=== PATIENT | female | born 1965 | race Caucasian/White ===

== ENCOUNTER 2025-01-23 00:02 | Day surgery (SDC) | payer OTHER, BC, SELFPAY ==
[2025-01-09 10:32] VITALS: BMI 23.1
--- OUTSIDE RECORDS SUMMARY | 2025-01-23 00:10 | XMS_ITS | Encounter Summary ---
Author Organization [facility] Address [address] [place] [address] Care Team Providers Care Striker Off Name Role Phone Genevieve Gonzales Primary Care Provider [phone] Reason for Visit * Reason Onset Date Comments Referral 01/22/2025 Encounter Details Date Type Department Care Team (Late st Contact Info) Description 01/22/2025 Telephone [facility] Multispecialty Care - [facility] 3 [facility], [address] [place] [phone] Dav Espinoza MD 3 [facility] [place] [address] [place] [id number] Referral Social History Tobacco Use Types Packs/Day Years Used Date Smoking Tobacco: Never Smokeless Tobacco: Never Alcohol Use Standard Drinks/Week Comments Not Currently 0 (1 standard drink = 0.6 oz pur e alcohol) PHQ-2 Answer Date Recorded PHQ-2 Score - If the patient scores above 3, please move on to questions 3-9 0 02/16/2022 Comments No Sex and Gender Information Value Date Recorded Sex Assigned at Female 08/08/2020 3:31 PM CDT Legal Sex Female 4:19 PM CDT Gender Identity Female 08/08/2020 3:31 PM CDT Sexual Orientation Straight 08/08/2020 3: 31 PM CDT documented as of this encounter Progress Notes * Nayla Escamilla - 01/22/2025 3:55 PM CDT Pt found another provider. Not needing to schedule * Tavia Agudelo RN - 01/22/2025 3:51 PM CDT Called due to referral, positive cologuard. New MD has openings next month, LVM to return call documented in this encounter Plan of Treatment Not on file documented as of this encounter Visit Diagnoses Not on filedocumented in this encounter Additional Health Concerns Assessment Noted Time PHQ-9 Depression Total Score: 0 10/24/19 21 4:37 PM CDT documented as of this encounter Care Teams Striker Off Relationship Specialty Start Date End Date Genevieve Gonzales PA PCP - General PHYSICIAN HAMMER DRIVER 11/25/18 documented as of this encounter
--- OUTSIDE RECORDS SUMMARY | 2025-01-23 00:10 | XMS_ITS | Clinical Summary ---
Author Organization [facility] Address [address] [place] [address] Care Team Providers Care Beater Head Name Role Phone Jose Juan Gooden MD Primary Care Provider [phone] Allergies Active Allergy Reactions Criticality Noted Date Comments Baclofen Hives Medium Medications Saccharomyces boulardii (PROBIOTIC, S.BOULARDII,) 250 mg capsule Activ e omeprazole OTC (PriLOSEC OTC) 20 mg EC tablet Acti ve calcium carbonate-vitam in D3 (CALCIUM 500 + D) 1,250mg (500mg elemental) - 200 units per tablet Active biotin 1 mg tablet Active methotrexate 2.5 mg tablet TAKE 8 TABLETS BY MOUTH ONCE A WEEK 40 tablet 3 04/04/2018 Active omeprazole (PriLOSEC) 20 mg capsule TAKE 1 CAPSULE BY MOUTH ONCE DAILY IN THE MORNING 05/26/2020 Active loratadine (Claritin) 10 mg tablet Active cyanocobalamin (Vitamin B-12) 500 mcg tablet Activ e cyanocobalamin (Vitamin B-12) 1,000 mcg tablet Active Active Problems Problem Noted Date Diagnosed Date Pain of finger 02/07/2014 Chronic pain 01/14/2013 Herniation of intervertebral disc of cervical re gion 01/14/2013 Osteoarthritis of cervical spine 01/14/2013 Gastroesophageal reflux disease 01/10/2013 Cervicalgia 12/28/2012 Surgical History Surgery Date Site/Laterality Comments SALPINGECTOMY Salpingectomy - (Added by TW Conv) FOOT SURGERY SALPINGECTOMY Medical History Medical History Date Comments Gastric reflux Family History Medical History Relation Name Comments Hypertension Brother Prostate cancer Brother Hypertension Father Prostate cancer Father Hypertension Sister Relation Name Status Comments Brother Father Sister Social History Tobacco Use Types Packs/Day Years Used Date Smoking Tobacco: Never Personal Safety Answer Date Recorded Getting School Help Needed Not on file 06/14 Comments Unknown Sex and Gender Information Value Date Recorded Sex Assigned at Not on file Legal Sex Female 7:09 AM SHIRT HEMMER Gender Identity Female 06/07/2020 10:36 AM SHIRT HEMMER Sexual Orientation Straight 06/07/2020 10 :35 AM SHIRT HEMMER Obstetrics History Last Filed Vital Signs Vital Sign Reading Time Taken Comments Blood Pressure 125/86 10/25/2018 7:27 AM CDT Pulse 87 10/25/2018 7:27 AM CDT Temperature - - Respiratory Rate - - Oxygen Saturation - - Inhaled Oxygen Concentration - - Weight 75.9 kg (167 lb 6.4 oz) 10/25/2018 7:27 A M CDT Height 167.6 cm (5' 6) 10/25/2018 7:27 AM CDT Body Mass Index 27.02 10/25/2018 7:27 AM CDT Plan of Treatment Not on file Insurance [facility] HMO [employer] [facility] Care Teams Beater Head Relationship Specialty Start Date End Date Jose Juan Gooden MD [address] [place], [place] [id number] PCP - General Internal Medicine 07/14/18
--- OUTSIDE RECORDS SUMMARY | 2025-01-23 00:10 | XMS_ITS | Clinical Summary ---
Author Organization [facility] Address [address] [place] [address] Care Team Providers Care Mophead Trimmer And Wrapper Name Role Phone Genevieve Gonzales Primary Care Provider [phone] Allergies Active Allergy Reactions Criticality Noted Date Comments Baclofen Hives,Itching,Rash Medium 08/08/2020 Pistachio Nuts Anaphylaxis,Hives,Sh ortness of Breath,Rash,Itching,Swelling,Throat swelling,Eyes Water & Itch High 08/08/2020 Medications Biotin 5000 MCG Tab daily. Active calcium carb-cholecalci ferol (CALCIUM PLUS VITAMIN D3) 600-800 MG-UNIT tablet 2 (two) times daily. Active Cyanocobalamin (VITAMIN B-12 CR) 1500 MCG Tab CR Take by mouth daily. Active omeprazole 20 MG capsule Take 1 capsule (20 mg total) by mouth daily. 1 Active Saccharomyces boulardii (PROBIOTIC) 250 MG Cap Take by mouth daily. Active loratadine 10 MG tablet Take 1 tablet (10 mg total) by mouth daily. Active gabapentin 300 MG capsule Take by mouth as needed. Active albuterol sulfate HFA 108 (90 Base) MCG/ACT inhaler albuterol sulfate HFA 90 mcg/actuation aerosol inhaler INHALE 2 PUFFS BY MOUTH EVERY 4 TO 6 HOURS NEEDED Active Ascorbic Acid (VITAMIN C) 500 MG Cap 2 (two) times a day. 1 Active Cholecalciferol (VITAMIN D3) 50 MCG (2000 UT) Cap daily. 1 Active aspirin EC (ECOTRIN) 81 MG tablet Take 1 tablet (81 mg total) by mouth daily. Active zinc gluconate 50 MG Tab Take 1 tablet (50 mg total) by mouth daily. Active ALPRAZolam (XANAX) 0.25 MG tablet TAKE 1 TABLET BY MOUTH ONCE DAILY NEEDED MAY CAUSE SEDATION AND CONFUSION 2 Active sertraline (ZOLOFT) 50 MG tablet Take 1 tablet (50 mg total) by mouth daily. Active potassium chloride CR (KLOR-CON M) 10 MEQ tablet Take 1 tablet (10 mEq total) by mouth daily. 4 Active azithromycin (ZITHROMAX) 250 MG tabletIndicatio ns:Non-recurren t acute serous otitis media of both ears Take 2 tablets by mouth on day one then 1 daily for four days. 6 tablet 4 Active Active Problems Problem Noted Date Diagnosed Date Capsulitis of left foot 01/29/2022 LBBB (left bundle branch block) 11/14/2021 Assessment & Plan (12/26/2021 12:17 PM CDT): With echocardiogram revealing a normal left-ventricular systolic function Her previous symptoms of chest pain and her family history she would like to proceed with coronary CTA with scoring Assessment & Plan (11/14/2021 10:19 AM CDT): Her EKG is remarkable for left bundle branch block. I recommended that she had an echocardiogram for further evaluation of her left ventricular function. If her left ventricular function is abnormal, will get cardiac catheterization. If her left ventricular function is normal and chest pain persists, can consider CTA coronary versus pharmacologic nuclear stress testing. Hyperlipidemia, mixed 11/14/2021 Assessment & Plan (12/26/2021 8:12 AM CDT): His elevation in her lipid panel Would recommend diet and activity modifications Assessment & Plan (11/14/2021 10:20 AM CDT): Her lipids are significantly elevated. I would like to get her echocardiogram first before recommending lipid-lowering therapy. 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 Foot pain 01/03/2013 Cervicalgia 12/28/2012 Resolved Problems Problem Noted Date Diagnosed Date Resolved Date Postoperative examination 07/25/2013 Encounter for preventive health examination 01/03/2013 08/12/2020 Encounters Date Type Department Care Team Description 01/22/[address] [place] [phone] Dav Espinoza MD Referral 12/27/2024 Telephone [facility] [address] [facility] [address] [place] [address] Dav Espinoza MD Referral from Last 3 Months Immunizations Immunization Administration Dates Next Due Flublok (Quadrivalent) 01/08/2019 Influenza Adult (Generic) 02/13/2018,05/07/2016 MODERNA COVID-19 (12+) MRNA, LNP-S, PF, 100 MCG/ 0.5 ML DOSE 08/27/2020,07/30/2020 Family History Medical History Relation Comments Hypertension Brother Prostate Cancer Brother Diabetes Father Heart Attack Father Heart Disease Father Hypertension Father Open Heart Father Prostate Cancer Father cardiac stent Father No Known Problems Maternal Grandfather No Known Problems Maternal Grandmother Diabetes Maternal Uncle No Known Problems Mother Breast Cancer Paternal Aunt 1 UNSURE OF AGE Lung Cancer Paternal Aunt 2 No Known Problems Paternal Grandfather No Known Problems Paternal Grandmother Hypertension Sister Relation Status Comments Brother Father Maternal Aunt Maternal Grandfather Maternal Grandmother Maternal Uncle Mother Paternal Aunt 1 Paternal Aunt 2 Paternal Grandfather Paternal Grandmother Sister Social History Tobacco Use Types Packs/Day Years Used Date Smoking Tobacco: Never Smokeless Tobacco: Never Tobacco Cessation:Counseling Given: No Alcohol Use Standard Drinks/Week Comments Not Currently [...] Orientation Straight 08/08/2020 3: 31 PM CDT Last Filed Vital Signs Vital Sign Reading Time Taken Comments Blood Pressure 132/89 03/13/2024 3:53 PM SUPERINTENDENT LOCAL Pulse 68 03/13/2024 3:53 PM SUPERINTENDENT LOCAL Temperature 36.3 C (97.3 F) 03/13/2024 3:53 PM SUPERINTENDENT LOCAL Respiratory Rate 18 03/13/2024 3:53 PM SUPERINTENDENT LOCAL Oxygen Saturation 95% 03/13/2024 3:53 PM SUPERINTENDENT LOCAL Inhaled Oxygen Concentration - - Weight 74.5 kg (164 lb 3.2 oz) 03/13/2024 3:53 P M SUPERINTENDENT LOCAL Height 165.1 cm (5' 5) 03/13/2024 3:53 PM SUPERINTENDENT LOCAL Body Mass Index 27.32 03/13/2024 3:53 PM SUPERINTENDENT LOCAL Plan of Treatment Health Maintenance Due Date Last Done Comments Cervical Cancer Screening Pap Smear (Age 30 to 64) Every 3 Years 1967 Colorectal Cancer Screening Colonoscopy (10 Years) 1967 Annual Physical 1970 Hepatitis C 1985 Hepatitis B Vaccines (1 of 3 - 19+ 3-dose series) 1986 Cervical Cancer Screening Pap with HPV Testing (Age 30 to 64) Every 5 Years 1997 Cervical Cancer Screening with HPV 1997 Pneumococcal Vaccine: 50+ Years (1 of 1 - PCV) 2017 PHQ-2 (Physician [place]) 04/19/2024 COVID-19 Vaccine ( - 2024- season) 2024 08/27/2020, 07/30/2020 Influenza Adult (#1) 2025 01/30/2024, 01/05/2023, 02/22/2022, Additional history exists Mammogram Screening 07/03/2026 07/03/2024, 06/25/2023, 01/29/2022, Additional history exists DTaP, Tdap and Td Vaccines (2 - Td or Tdap) 11/28/2033 11/29/2023 Zoster Vaccines Completed 06/13/2021, 01/12/2021 Meningococcal B Vaccine Aged Out No l onger eligible based on patient's age to complete this topic Meningococcal Vaccine Aged Out No vianney lashae eligible based on patient's age to complete this topic RSV Immunizations Under 20 Months Aged Out No longer eligible based on patient's age to complete this topic Procedures Procedure Name Priority Date/Time Associated Diagnosis Comments MG SCREENING W YULIA NIKITA DIGI Routine 07/03/2024 8:27 AM CDT Visit for screening mammogram from Last 3 Months or Most Recently Relevant to Health Maintenance Results * MG SCREENING W YULIA NIKITA DIGI (07/03/2024 8:27 AM CDT) Anatomical Region Laterality Modality Breast Bilateral Mammography 07/03/2024 11:4 2 AM CDT Impressions 07/03/2024 11:53 AM CDT ===== IMPRESSION: ===== 1. Stable mammographic appearance with no new findings to suggest malignancy in either breast. Assessment: ACR BI-RADS 1 - NEGATIVE Recommendation: 1:Routine Screening Bilateral Comments: Ordered By: ADITHYA SHARMA Interpreted By: Radha Pulido, 07/03/2024 11:42 AM Narrative 07/03/2024 11:53 AM CDT [facility] [address] [place] [address] EXAMINATION: Digital bilateral screening mammogram with 3-D tomosynthesis EXAM DATE/TIME: 07/03/2024 7:57 AM REASON FOR EXAM: Routine screening Carcinoma and paternal aunt at 45 COMPARISON: 01/29/2022. 06/25/2023 Technique: Digital screening mammography of both breasts was performed in addition to 3-D Tomosynthesis technique. This study was read with the assistance of a computer-aided detection system. Tissue density: The breasts are almost entirely fatty. Findings: There is no new focal asymmetry, dominant mass lesion, area of skin thickening, or cluster of suspicious appearing calcifications in either breast to suggest malignancy. us Adithya Sharma MD MAMMO Final Result from Last 3 Months or Most Recently Relevant to Health Maintenance Insurance [employer] Advance Directives * Full Code (Latest Code Status on File) Date Activated Date Inactivated Comments 11/19/2020 2:36 PM 11/19/2020 4:48 PM Care Teams Mophead Trimmer And Wrapper Relationship Specialty Start Date End Date Genevieve Gonzales PA PCP - General PHYSICIAN TUNE UP MECHANIC 11/25/18
--- OUTSIDE RECORDS SUMMARY | 2025-01-23 00:10 | XMS_ITS | Encounter Summary ---
Author Organization [facility] [place] [address] Care Team Providers Care Team Foreman Name Role Phone Genevieve Gonzales Primary Care Provider [phone] Encounter Details Date Type Department Care Team (Late st Contact Info) Description 11/13/2021 Abstract [facility] [address] Ta Starr MA Social History Tobacco Use Types Packs/Day Years Used Date Smoking Tobacco: Never Smokeless Tobacco: Never Alcohol Use Standard Drinks/Week Comments Not Currently 0 (1 standard drink = 0.6 oz pur e alcohol) PHQ-2 Answer Date Recorded PHQ-2 Score - If the patient scores above 3, please move on to questions 3-9 0 10/23/2020 Comments No Sex and Gender Information Value Date Recorded Sex Assigned at Female 08/08/2020 3:31 PM CDT Legal Sex Female 4:19 PM CDT Gender Identity Female 08/08/2020 3:31 PM CDT Sexual Orientation Straight 08/08/2020 3: 31 PM CDT COVID-19 Exposure Response Date Recorded In the last 10 days, have yo u been in contact with someone who was confirmed or suspected to have Coronavirus/COVID-19? Unable to assess 11/14/2021 11:11 AM CDT documented as of this encounter Plan of Treatment Not on file documented as of this encounter Procedures Procedure Name Priority Date/Time Associated Diagnosis Comments CBC (OUTSIDE LAB) Routine 10/31/2021 VITAMIN B-12 Routine 10/31/2021 COMPREHENSIVE METABOLIC PANEL Routine 10/31/2021 LIPID PANEL Routine 10/31/2021 THYROID STIM HORMONE TSH Routine 10/31/2021 MAGNESIUM Routine 10/31/2021 documented in this encounter Results * VITAMIN B-12 (10/31/2021) VITAMIN B12 S/P/B 1,183 10/31/2021 [facility]AT[facility] Final Result * CBC (OUTSIDE LAB) (10/31/2021) WBC 5.1 HGB 13.3 HCT 42.5 PLT 237 10/31/2021 [facility] LAB-OUTSIDE/ABSTRACTED Final Result * THYROID STIM HORMONE, TSH (10/31/2021) TSH 1.65 10/31/2021 us [facility] Final Result * MAGNESIUM (10/31/2021) MAGNESIUM 2.2 10/31/2021 us [facility] Final Result * COMPREHENSIVE METABOLIC PANEL (10/31/2021) SODIUM S/P/B 143 POTASSIUM S/P/B 4.0 CO2 26 CHLORIDE S/P/B 106 GLUCOSE 85 mg/dL CALCIUM S/P/B 9.1 BUN 20 CREATININE S/P/B 0.80 0.5 - 1.0 EGFR NON-AFR. AMER. 88 <=90 ALKALINE PHOSPHATASE S/P/B 25 ALT 31 AST 25 BILIRUBIN TOTAL S/P/B 0.4 ALBUMIN S/P/B 4.4 3.5 - 5.0 TOTAL PROTEIN S/P/B 6.7 GLOBULIN 2.3 10/31/2021 [facility] Final Result * LIPID PANEL (10/31/2021) CHOLESTEROL 250 HDL 48 TRIGLYCERIDES 178 NON HDL CHOLESTEROL 202 LDL (CALCULATED) 169 10/31/2021 us [facility] Final Result documented in this encounter Visit Diagnoses Not on filedocumented in this encounter Additional Health Concerns Assessment Noted Time PHQ-9 Depression Total Score: 0 10/24/19 21 4:37 PM CDT documented as of this encounter Care Teams Team Foreman Relationship Specialty Start Date End Date Genevieve Gonzales PA PCP - General PHYSICIAN DIRECTOR COUNSELING BUREAU 11/25/18 documented as of this encounter
[2025-01-23 12:15] VITALS: BP 115/85; PULSE 109; RESP 18; TEMP 36.5; O2SAT 100; BMI 23.5
[2025-01-23] MEDS: LACTATED RINGERS 1,000 ML 150 ML IV CONT (12:37)
--- NOTE | 2025-01-23 13:12 | WPDANESEPPF ---
Anes - Initial Pre Proc Eval Procedure: Operation Date: 01/23/25 13:30 Proposed Procedures p Screening Colonoscopy - Chad Villalobos MD Date/Time: 01/23/25 13:12 Surgeon: Chad Villalobos MD Pre Op Diagnosis: Encounter for screening for malignant neoplasm of Patient Data Age: 60 Gender: F Height: 1.68 m Weight: 66.1 kg Last Vital Signs Temp 36.5 C 01/23/25 12:15 Pulse 109 H 01/23/25 12:15 Resp 18 01/23/25 12:15 BP 115/85 01/23/25 12:15 Pulse Ox 100 01/23/25 12:15 O2 Del Method Room Air 01/23/25 12:15 Allergies Allergy/AdvReac Type Severity Reaction Status Date / Time baclofen Allergy Severe HIVES Verified 01/23/25 12:26 azithromycin (From Zithromax AdvReac Diarrhea Verified 01/23/25 12:26 Z-Dann) Pistachio Allergy Unknown throat Uncoded 11/29/24 08:05 swelling, hives, difficulty breathing Home Medications ?Medication ?Instructions ?Recorded ?Confirmed ?Type L.acidophil-L.casei-B.bifid-B.longum-FOS 1 cap PO DAILY 01/09/20 01/23/25 History 2 billion cell-50 mg capsule (Probiotic Blend) biotin 5,000 mcg disintegrating 5,000 mcg PO DAILY 01/09/20 01/23/25 History tablet calcium 600 mg (as 1 cap PO DAILY 01/09/20 01/23/25 History carbonate)-vitamin D3 5 mcg (200 unit) capsule (Calcium 600 + D(3)) cyanocobalamin (vitamin B-12) 1,500 mcg sublingual DAILY 01/09/20 01/23/25 History 5,000 mcg sublingual tablet (Vitamin B-12) loratadine 10 mg tablet (Claritin) 10 mg PO DAILY 01/09/20 01/23/25 History multivitamin 1 tablet PO DAILY 01/09/20 01/23/25 History ascorbic acid (vitamin C) 500 mg 500 mg PO TID 04/08/22 01/23/25 History capsule aspirin 81 mg chewable tablet 81 mg PO DAILY 04/08/22 01/23/25 History cholecalciferol (vitamin D3) 50 50 mcg PO DAILY 04/08/22 01/23/25 History mcg (2,000 unit) capsule sertraline 50 mg tablet (Zoloft) 50 mg PO DAILY #90 tabs 03/17/23 01/23/25 Rx albuterol sulfate 90 mcg/actuation 2 puff inhalation Q4H PRN 11/03/23 01/09/25 Rx aerosol inhaler (Ventolin HFA) shortness of breath or wheezing #6.7 grams semaglutide 1 mg/dose (4 mg/3 mL) See Rx Instructions subcut WEEKLY 11/29/23 01/23/25 History subcutaneous pen injector zinc gluconate 50 mg tablet 50 mg PO .3x week 11/29/23 01/09/25 History omeprazole 20 mg capsule,delayed 20 mg PO DAILY #30 caps 01/12/25 01/23/25 Rx release rosuvastatin 5 mg tablet 5 mg PO .HS #90 tabs 01/12/25 01/23/25 Rx Patient hx anesthesia problems: none Family hx anesthesia problems: none Results Review: All pre-operative results and documents have been reviewed as part of the pre-operative evaluation. [facility] Past Medical History Medical History (Updated 01/22/25 @ 09:50 by Jose Raul Hernandez DO) LBBB (left bundle branch block) GERD (gastroesophageal reflux disease) Family history of coronary artery disease Dad, quadruple bypass at 60 Palpitations Dyslipidemia Plantar fascia syndrome Cervicalgia Anxiety Surgical History Surgical History History of partial splenectomy Family History Family History Other Diabetes mellitus Family history of arthritis Family history of cardiovascular disease Hypertension Social History Social History Social History: 11/22/24 Patient is very confident in filling out medical forms. Patient has not rcvd assistance in the past 12 months. Smoking status: Never smoker Alcohol intake: never Substance use: never Substance use type: does not use Lack of Transportation: No Lack of Food: Never True Current Housing: I Have Housing Concerned About Future Housing: No Difficulty Paying Gas/Electric Bills: No Difficulty Paying for Meds: No Currently Unemployed: No Education: High School Diploma/GED Difficulty w/ Childcare or Family Care: No Living arrangements: with family Occupation/Education: occupation Gender identity (if verbalized by the patient): Female Spiritual care concerns: No Anes - Eval Final PreProcedure Day of Procedure 01/23/25 13:12 Patient weight: normal Heart: regular rate and rhythm Lungs: clear to auscultation and normal air movement Airway: Mallampati scale class II Neurological: alert and oriented Last oral intake: >/= 8 hours ASA classification: III Emergent: no Anesthetic plan: proceed Anesthesia type and monitoring: general GIVS and standard monitoring Results Review: All pre-operative results and documents have been reviewed as part of the pre-operative evaluation. Informed Consent: The patient's anesthetic plan and its attendant risks and benefits were discussed with the patient/family/POA. Questions were solicited and answers provided to the satisfaction of the patient/family/POA.
--- NOTE | 2025-01-23 13:41 | PM.IMHP ---
H&P: HPI History of Present Illness Date/Time: 01/23/25 13:41 Chief Complaint: Positive Cologuard Narrative: This is the patient's first colonoscopy. she was recently found to have a Cologuard positive test. There are no GI symptoms and there is no family history of colorectal cancer. Review of Systems Review of Systems: All systems reviewed & are unremarkable except as noted in HPI and below PMFSH Past Medical History Medical History (Updated 01/23/25 @ 13:41 by Chad Villalobos MD) LBBB (left bundle branch block) GERD (gastroesophageal reflux disease) Family history of coronary artery disease Dad, quadruple bypass at 60 Palpitations Dyslipidemia Plantar fascia syndrome Cervicalgia Anxiety Surgical History Surgical History History of partial splenectomy Family History Family History Other Diabetes mellitus Family history of arthritis Family history of cardiovascular disease Hypertension Social History Social History Social History: 11/22/24 Patient is very confident in filling out medical forms. Patient has not rcvd assistance in the past 12 months. Smoking status: Never smoker Alcohol intake: never Substance use: never Substance use type: does not use Lack of Transportation: No Lack of Food: Never True Current Housing: I Have Housing Concerned About Future Housing: No Difficulty Paying Gas/Electric Bills: No Difficulty Paying for Meds: No Currently Unemployed: No Education: High School Diploma/GED Difficulty w/ Childcare or Family Care: No Living arrangements: with family Occupation/Education: occupation Gender identity (if verbalized by the patient): Female Spiritual care concerns: No Meds Home Medications and Allergies Home Medications ?Medication ?Instructions ?Recorded ?Confirmed ?Type L.acidophil-L.casei-B.bifid-B.longum-FOS 1 cap PO DAILY 01/09/20 01/23/25 History 2 billion cell-50 mg capsule (Probiotic Blend) biotin 5,000 mcg disintegrating 5,000 mcg PO DAILY 01/09/20 01/23/25 History tablet calcium 600 mg (as 1 cap PO DAILY 01/09/20 01/23/25 History carbonate)-vitamin D3 5 mcg (200 unit) capsule (Calcium 600 + D(3)) cyanocobalamin (vitamin B-12) 1,500 mcg sublingual DAILY 01/09/20 01/23/25 History 5,000 mcg sublingual tablet (Vitamin B-12) loratadine 10 mg tablet (Claritin) 10 mg PO DAILY 01/09/20 01/23/25 History multivitamin 1 tablet PO DAILY 01/09/20 01/23/25 History ascorbic acid (vitamin C) 500 mg 500 mg PO TID 04/08/22 01/23/25 History capsule aspirin 81 mg chewable tablet 81 mg PO DAILY 04/08/22 01/23/25 History cholecalciferol (vitamin D3) 50 50 mcg PO DAILY 04/08/22 01/23/25 History mcg (2,000 unit) capsule sertraline 50 mg tablet (Zoloft) 50 mg PO DAILY #90 tabs 03/17/23 01/23/25 Rx albuterol sulfate 90 mcg/actuation 2 puff inhalation Q4H PRN 11/03/23 01/09/25 Rx aerosol inhaler (Ventolin HFA) shortness of breath or wheezing #6.7 grams semaglutide 1 mg/dose (4 mg/3 mL) See Rx Instructions subcut WEEKLY 11/29/23 01/23/25 History subcutaneous pen injector zinc gluconate 50 mg tablet 50 mg PO .3x week 11/29/23 01/09/25 History omeprazole 20 mg capsule,delayed 20 mg PO DAILY #30 caps 01/12/25 01/23/25 Rx release rosuvastatin 5 mg tablet 5 mg PO .HS #90 tabs 01/12/25 01/23/25 Rx Allergies Allergy/AdvReac Type Severity Reaction Status Date / Time baclofen Allergy Severe HIVES Verified 01/23/25 12:26 azithromycin (From Zithromax AdvReac Diarrhea Verified 01/23/25 12:26 Z-Dann) Pistachio Allergy Unknown throat Uncoded 11/29/24 08:05 swelling, hives, difficulty breathing Vital Signs Vital Signs - 24 hr 01/23/25 12:15 Temperature 97.7 F Pulse Rate 109 H Respiratory Rate 18 Blood Pressure 115/85 Pulse Oximetry 100 Oxygen Delivery Room Air Exam Const: General: cooperative and healthy appearing Resp: Effort & Inspection: normal respiratory effort and able to speak in complete sentences Auscultation: clear to auscultation bilaterally Cardio: Rate: regular rate Rhythm: regular rhythm GI: Inspection: normal to inspection GI Palp: No No hepatosplenomegaly present Auscultation: normal bowel sounds Rectal Exam: deferred Skin: General skin exam: normal color Psych: Appearance: grossly normal Mental Status: mental status grossly normal Assessment and Plan Assessment and plan (1) Positive colorectal cancer screening using Cologuard test: Code(s): R19.5 - Other fecal abnormalities Status: Acute Assessment and Plan: The patient is deemed a good candidate for the procedure. Consent signed. Will proceed.
[2025-01-23 14:09] VITALS: BP 108/69; PULSE 85; RESP 15; O2SAT 100
[2025-01-23 14:19] VITALS: BP 112/69; PULSE 80; RESP 21; O2SAT 100
[2025-01-23 14:29] VITALS: BP 116/77; PULSE 72; RESP 22; O2SAT 100
== END 2025-01-23 14:29 | disposition home or self-care (01) ==
PROVIDERS: PCP Physician Assistant Medical; Referring Provider Physician Assistant Medical; Visit Provider Internal Medicine Gastroenterology
PROC: 0DJD8ZZ Inspection of Lower Intestinal Tract, Via Natural or Artificial Opening Endoscopic (ICD-10-PCS; CPT 45378; principal; 2025-01-23 13:30)
DX: R19.5 Other fecal abnormalities (principal); K64.8 Other hemorrhoids; E78.5 Hyperlipidemia, unspecified; K21.9 Gastro-esophageal reflux disease without esophagitis; F41.9 Anxiety disorder, unspecified; I44.7 Left bundle-branch block, unspecified; R00.2 Palpitations; M72.2 Plantar fascial fibromatosis; Z79.82 Long term (current) use of aspirin; Z79.51 Long term (current) use of inhaled steroids; Z79.85 Long-term (current) use of injectable non-insulin antidiabetic drugs; Z90.81 Acquired absence of spleen; Z82.49 Family history of ischemic heart disease and other diseases of the circulatory system
CPT/HCPCS: 45378; J2003; J2704; J7120